=== PATIENT | male | born 1980 | race Caucasian/White ===

== ENCOUNTER 2017-09-21 09:02 | Day surgery (SDC) | payer OTHER, SELFPAY ==
[2017-09-18 15:10] VITALS: BMI 58.3
[2017-09-21] VITALS (10 sets, daily range): BP systolic 109–151; BP diastolic 50–95; PULSE 71–96; RESP 14–74; TEMP 36.1–36.2; O2SAT 85–97; BMI 58.3
[2017-09-21] MEDS: LACTATED RINGERS 1,000 ML 42 ML IV (10:40)
[2017-09-21] MEDS: CEFAZOLIN VIAL 3 GM in SODIUM CHLORIDE 0.9% 100 ML 500 ML IV (11:20)
--- NOTE | 2017-09-21 11:47 | SUR.OPER ---
Supine on padded OR bed, head on pillow, arms secured on padded arm boards at <90 degrees abduction, legs uncrossed, safety belt at thigh, tape over blanket over lower legs.
[2017-09-21] MEDS: BUPIVACAINE 0.5% W/ EPI (PF) 30 ML VIAL INJ (13:02)
--- NOTE | 2017-09-21 13:36 | PM.OP.1 ---
Operative Date/Time/Diagnoses Date of procedure: 09/21/17 Time of procedure: 11:36 Pre-op diagnosis: Left subacute distal biceps rupture Post-op diagnosis: same Procedure & Clinicians Procedure: Distal biceps repair left. Same procedure as scheduled: Yes Indications: Subacute left distal biceps rupture with significant retraction Surgeon: Xavier Odell Community Marketing Manager: Azeb Doty Anesthesia Type: General Operative Notes Findings: Complete rupture of the distal biceps with greater than 10 cm of retraction Closure Type: primary Implants & Drains: Endo-button Estimated Blood Loss (mL): 10 Blood products transfused: none Tourniquet time (min): 75 Procedure in detail: Service patient was met in the holding area. Operative site was signed and witnessed by the OR staff. The surgery once again discussed with patient and any remaining questions they had were answered fully. Patient was taken back to the operating theater and placed on the operating table in the supine position. Great care taken to ensure that all bony prominences were properly padded. A well-padded tourniquet was placed up along the upper extremity. A timeout was performed to verify patient's name, procedure, and operative site. A small incision was made in the anterior portion of the upper arm just proximal to the antecubital fossa. The cuts and Metzenbaum scissors were used to dissect down through the fascial tissue. A small opening were able to retrieve the distal bicep tendon. The distal end of the tendon was cleaned up. Any pseudo-tendinous material or fibrinous material was removed. Next, an Endobutton was stitched at the end of the tendons. A locking whipstitch suture was used to secure the Endobutton to the distal bicep tendon. A #2 the cord was used for the suture. 2 separate sutures were then used to go up and then down to the tendon to separate times. There was a total of 4 locking strands. Knees were passed through the center of the Endobutton. The tendon was then wrapped in a moist Ray-Gita an Esmarch was used to exsanguinate the limb and the tourniquet was turned up to 250 mm of mercury. A diagonal incision was made starting at proximal medial and going to distal radial. The lateral antecubital cutaneous nerve was identified and protected. Due to the acute nature of the rupture we were able to bluntly dissect down to the bicipital tuberosity. A periosteal elevator was used to remove any remaining tendons off the footprint. Then a curved hemostat was used to retrieve the tendons proximally and passed it down into the second incision. Next, A guidewire was placed through the bicipital tuberosity. The proximal aspect of the cortex was drilled to 8 mm. The wound was then loosely irrigated to remove any bony fragments. The distal cortex was drilled to 4 mm. Sutures were then placed through the lateral holes of the Endo button. These were then placed into the guidewire and passed through a bony tunnel and out the forearm. Those marionette Sutures were used to flip the Endobutton and put it into its appropriate position as a buttress. This provided a adair repair of the biceps tendon. The wound was copiously irrigated again and closed in a layered fashion. Patient was cleaned dried and dressed and he was placed into a splint. Patient was taken to the PACU in stable condition. Postoperatively, neurovascular check was done to the hand. Patient had a 2+ radial pulse and brisk cap refill. Patient had no signs of any posterior interosseous nerve dysfunction. Patient was able to easily fully extend the fingers and the thumb. Complications: none Condition: stable Disposition: PACU Plan for aftercare: Patient will be discharged home today. Patient will follow our postoperative protocol for distal biceps repair.
[2017-09-21] MEDS: fentaNYL 100 MCG/2 ML INJ 50 MCG IV ×2 (13:39→13:45)
[2017-09-21] MEDS: OXYCODONE/ACETAMINOPHEN 5/325 TABLET 1 TAB PO (14:02)
--- NOTE | 2017-09-21 14:37 | SUR.PHASEI ---
Pt. in phase II at time of last documentation, accidently charted in the phase I area. Re charted appropriately under the phase II portion.
== END 2017-09-21 14:40 | disposition home or self-care (01) ==
PROVIDERS: Visit Provider Orthopaedic Surgery
PROC: (CPT 24341; principal; 2017-09-21 10:45)
DX: S46.212A Strain of muscle, fascia and tendon of other parts of biceps, left arm, initial encounter (principal); E66.9 Obesity, unspecified; Z68.43 Body mass index [BMI] 50.0-59.9, adult; X50.9XXA Other and unspecified overexertion or strenuous movements or postures, initial encounter; Y93.79 Activity, other specified sports and athletics; G47.33 Obstructive sleep apnea (adult) (pediatric); K21.9 Gastro-esophageal reflux disease without esophagitis
CPT/HCPCS: 24342; J0330; J0690; J1100; J2250; J2405; J2704; J3010